=== PATIENT | female | born 1975 | race African-American/Black ===

== ENCOUNTER 2018-11-11 14:21 | Emergency (ER) | payer MEDICAID ==
[~2018-11-11] VITALS: Ht 160 cm; Wt 73.0 kg
[~2018-11-11 14:21] MED LIST: IOHEXOL-300 100 ML BOTTLE ONE
[2018-11-11] MEDS ORDERED: SODIUM CHLORIDE 0.9% 1,000 ML IV ONE (14:50)
[2018-11-11] MEDS ORDERED: MORPHINE SULFATE 4 MG/ML CPJ (NOT FOR IM USE) IV STA (14:50)
[2018-11-11] MEDS ORDERED: ONDANSETRON HCL 4MG/2ML INJ IV STA (14:50)
[2018-11-11 14:57] VITALS: BP 105/50
[2018-11-11] MEDS ORDERED: LIDOCAINE HCL 1% 20ML VIAL (Pyxis) INJ INFIL ONE ×2 (15:30→17:15)
[2018-11-11 15:49] LABS: HEMATOCRIT. 32.8 % (36.0-48.0); MEAN CORPUSCULAR HEMOGLOBIN 21.2 pg (28.0-32.0); MEAN CORPUSCULAR VOLUME 69.3 fL (81.0-99.0); MEAN PLATELET VOLUME 7.2 fl (7.4-10.4); PLATELET 364 x1000/uL (130-400); RED BLOOD CELL COUNT 4.72 mill/uL (4.2-5.4); RED CELL DISTRIBUTION WIDTH 19.2 % (11.6-14.6)
[2018-11-11 15:54] LABS: CHLORIDE 106 mEq/L (98-107)
[2018-11-11 15:55] LABS: PROTHROMBIN TIME 9.7 sec (9.1-11.1)
[2018-11-11 16:22] LABS: PLATELET ESTIMATE NORMAL
[2018-11-11] MEDS ORDERED: LIDOCAINE/EPINEPHR/TETRACAINE 3ML TP ONE (17:00)
[2018-11-11] MEDS ORDERED: LIDOCAINE HCL 2% JELLY 5ML TOP ONE (17:30)
== END 2018-11-11 19:05 | disposition home or self-care (01) ==
LOC: ER 14:32
DX: S61.215A Laceration without foreign body of left ring finger without damage to nail, initial encounter (principal); S01.311A Laceration without foreign body of right ear, initial encounter; S11.91XA Laceration without foreign body of unspecified part of neck, initial encounter; S31.119A Laceration without foreign body of abdominal wall, unspecified quadrant without penetration into peritoneal cavity, initial encounter; X99.1XXA Assault by knife, initial encounter; Y93.89 Activity, other specified; Y92.89 Other specified places as the place of occurrence of the external cause; Y99.8 Other external cause status
CPT/HCPCS: 12004; 12011; 36415; 74177; 80053; 81025; 83690; 85025; 85610; 96374; 96375; 99284; J2270; J2405; J3490; J7030; Q9967; Z7610

== ENCOUNTER 2020-02-10 18:45 | Emergency (ER) | payer MEDICAID ==
[~2020-02-10] VITALS: Ht 160 cm; Wt 73.0 kg
[2020-02-10] MEDS ORDERED: ACETAMINOPHEN 325MG TABLET PO STA (20:01)
[2020-02-10 20:35] LABS: CLARITY URINE CLOUDY (CLEAR); COLOR URINE DARK YELLOW (YELLOW); KETONES URINE TRACE (NEGATIVE); LEUKOCYTE ESTERASE URINE NEGATIVE (NEGATIVE); NITRITE URINE NEGATIVE (NEGATIVE); OCCULT BLOOD URINE NEGATIVE (NEGATIVE); PH URINE 5.5 (4.5-8.0); PROTEIN URINE TRACE (NEGATIVE); SPECIFIC GRAVITY URINE 1.028 (1.005-1.030)
[2020-02-10 20:56] LABS: METHADONE URINE SCREEN NEGATIVE (NEGATIVE); OPIATES URINE SCREEN NEGATIVE (NEGATIVE)
[2020-02-10 20:57] LABS: *BARBITURATES SCREEN URINE NEGATIVE (NEGATIVE); *BENZODIAZEPINES SCREEN URINE NEGATIVE (NEGATIVE); *COCAINE SCREEN URINE NEGATIVE (NEGATIVE); CANNABINOID URINE SCREEN NEGATIVE (NEGATIVE); PHENCYCLIDINE URINE SCREEN NEGATIVE (NEGATIVE)
[2020-02-10 21:02] LABS: *AMPHETAMINES SCREEN URINE PRESUMTIVE POSITIVE (NEGATIVE)
[2020-02-10 21:09] LABS: BASOPHILS % 0.2 % (0.0-2.0); EOSINOPHILS % 2.4 % (0.0-5.0); HEMOGLOBIN. 13.5 g/dL (12.0-16.0); LYMPHOCYTES % 28.5 % (20.0-50.0); MEAN CORPUSCULAR HEMOGLOBIN 26.9 pg (28.0-32.0); MEAN CORPUSCULAR VOLUME 81.4 fL (81.0-99.0); MEAN PLATELET VOLUME 7.1 fl (7.4-10.4); MONOCYTES % 9.5 % (2.0-8.0); NEUTROPHILS % 59.4 % (40.0-76.0); PLATELET 297 x1000/uL (130-400); RED BLOOD CELL COUNT 5.04 mill/uL (4.2-5.4); RED CELL DISTRIBUTION WIDTH 17.3 % (11.6-14.6)
[2020-02-10 21:11] LABS: CHLORIDE 107 mEq/L (98-107)
[2020-02-10 21:15] LABS: ETHANOL BLOOD < 10 mg/dL
[2020-02-10 21:37] VITALS: BP 140/80
== END 2020-02-10 21:38 | disposition home or self-care (01) ==
LOC: ER 18:45
DX: S00.83XA Contusion of other part of head, initial encounter (principal); T16.2XXA Foreign body in left ear, initial encounter; F15.10 Other stimulant abuse, uncomplicated; F16.10 Hallucinogen abuse, uncomplicated; F41.9 Anxiety disorder, unspecified; F31.9 Bipolar disorder, unspecified; E11.9 Type 2 diabetes mellitus without complications; I10 Essential (primary) hypertension; F17.210 Nicotine dependence, cigarettes, uncomplicated; J32.9 Chronic sinusitis, unspecified; Y00.XXXA Assault by blunt object, initial encounter; Y93.89 Activity, other specified; Y92.89 Other specified places as the place of occurrence of the external cause
CPT/HCPCS: 36415; 80048; 80305; 80320; 81003; 81025; 85025; 99284; G0480

== ENCOUNTER 2020-06-19 09:36 | Emergency (ER) | payer MEDICAID ==
[~2020-06-19] VITALS: Ht 162.6 cm; Wt 68.0 kg
[2020-06-19 09:43] VITALS: BP 150/90
== END 2020-06-19 12:09 | disposition left against medical advice (07) ==
LOC: ER 09:36
DX: R51 Headache (principal); Z53.21 Procedure and treatment not carried out due to patient leaving prior to being seen by health care provider

== ENCOUNTER 2021-06-17 12:00 | Emergency (ER) | payer MEDICAID ==
[~2021-06-17] VITALS: Ht 167.6 cm; Wt 100.0 kg
[2021-06-17] MEDS ORDERED: MORPHINE SULFATE 4 MG/ML CPJ (NOT FOR IM USE) IV ONE (12:45)
[2021-06-17] MEDS ORDERED: ONDANSETRON HCL 4MG/2ML INJ IV ONE (12:45)
[2021-06-17 13:25] LABS: BASOPHILS % 1.3 % (0.0-2.0); EOSINOPHILS % 1.8 % (0.0-5.0); HEMATOCRIT. 44.1 % (36.0-48.0); HEMOGLOBIN. 14.9 g/dL (12.0-16.0); LYMPHOCYTES % 21.4 % (20.0-50.0); MEAN CORPUSCULAR HEMOGLOBIN 27.5 pg (28.0-32.0); MEAN CORPUSCULAR VOLUME 81.6 fL (81.0-99.0); MEAN PLATELET VOLUME 6.9 fl (7.4-10.4); MONOCYTES % 10.1 % (2.0-8.0); NEUTROPHILS % 65.4 % (40.0-76.0); PLATELET 362 x1000/uL (130-400); RED BLOOD CELL COUNT 5.41 mill/uL (4.2-5.4); RED CELL DISTRIBUTION WIDTH 14.2 % (11.6-14.6)
[2021-06-17 13:32] LABS: CHLORIDE 105 mEq/L (98-107)
[2021-06-17 14:59] LABS: CLARITY URINE CLEAR (CLEAR); COLOR URINE YELLOW (YELLOW); KETONES URINE TRACE (NEGATIVE); LEUKOCYTE ESTERASE URINE NEGATIVE (NEGATIVE); NITRITE URINE NEGATIVE (NEGATIVE); OCCULT BLOOD URINE TRACE (NEGATIVE); PROTEIN URINE NEGATIVE (NEGATIVE); SPECIFIC GRAVITY URINE 1.018 (1.005-1.030)
[2021-06-17] MEDS ORDERED: ACETAMINOPHEN 325MG TABLET PO ONE (17:30)
[2021-06-17] MEDS ORDERED: ACET-2708 MT (17:44)
[2021-06-17] MEDS ORDERED: TRAM50TA3 MT (17:44)
[2021-06-17 18:03] VITALS: BP 126/67
== END 2021-06-17 18:04 | disposition home or self-care (01) ==
LOC: ER 12:27
DX: S06.9X0A Unspecified intracranial injury without loss of consciousness, initial encounter (principal); R10.9 Unspecified abdominal pain; R42 Dizziness and giddiness; V43.52XA Car driver injured in collision with other type car in traffic accident, initial encounter; Y93.89 Activity, other specified; Y92.410 Unspecified street and highway as the place of occurrence of the external cause
CPT/HCPCS: 36415; 70450; 74177; 80053; 81003; 81025; 83690; 85025; 96374; 96375; 99285; J2270; J2405

== ENCOUNTER 2021-06-18 23:20 | Emergency (ER) | payer MEDICAID ==
[~2021-06-18] VITALS: Ht 162.6 cm; Wt 73.0 kg
[~2021-06-18 23:20] MED LIST changes: +ACET-2708 MT; -IOHEXOL-300 100 ML BOTTLE ONE; +TRAM50TA3 MT
[2021-06-19] MEDS ORDERED: ACETAMINOPHEN 325MG TABLET PO ONE (00:45)
[2021-06-19] MEDS ORDERED: TRAMADOL 50MG TABLET PO ONE (01:30)
[2021-06-19 02:30] VITALS: BP 115/69
== END 2021-06-19 02:30 | disposition home or self-care (01) ==
LOC: ER 23:20
DX: S09.8XXA Other specified injuries of head, initial encounter (principal); R07.89 Other chest pain; Z98.890 Other specified postprocedural states; Y00.XXXA Assault by blunt object, initial encounter; Y93.89 Activity, other specified; Y92.89 Other specified places as the place of occurrence of the external cause
CPT/HCPCS: 71045; 93005; 99283

== ENCOUNTER 2022-01-21 16:28 | Emergency (ER) | payer MEDICAID, OTHER ==
[~2022-01-21] VITALS: Ht 165.1 cm; Wt 66.0 kg
[2022-01-21] MEDS ORDERED: KETOROLAC 30MG/ML VIAL IV STA (16:59)
[2022-01-21] MEDS ORDERED: SODIUM CHLORIDE 0.9% 1,000 ML IV ONE (17:00)
[2022-01-21 18:50] LABS: BASOPHILS % 1.2 % (0.0-2.0); EOSINOPHILS % 3.4 % (0.0-5.0); HEMATOCRIT. 43.1 % (36.0-48.0); HEMOGLOBIN. 14.6 g/dL (12.0-16.0); MEAN CORPUSCULAR HEMOGLOBIN 28.7 pg (28.0-32.0); MEAN PLATELET VOLUME 7.1 fl (7.4-10.4); MONOCYTES % 10.9 % (2.0-8.0); NEUTROPHILS % 60.5 % (40.0-76.0); PLATELET 350 x1000/uL (130-400); RED BLOOD CELL COUNT 5.07 mill/uL (4.2-5.4); RED CELL DISTRIBUTION WIDTH 15.7 % (11.6-14.6)
[2022-01-21 18:58] LABS: CHLORIDE 105 mEq/L (98-107)
[2022-01-21 19:04] LABS: ETHANOL BLOOD < 10 mg/dL
[2022-01-21 19:12] LABS: HCG SCREEN NEGATIVE
[2022-01-21] MEDS ORDERED: KETOROLAC 30MG/ML VIAL IV NR (20:30)
[2022-01-21] MEDS ORDERED: KETOROLAC 15MG/ML VIAL IV NR (20:30)
[2022-01-21] MEDS ORDERED: IBUP-2028 MT (20:47)
[2022-01-21 20:54] VITALS: BP 128/90
[2022-01-21] MEDS ORDERED: IOHEXOL-300 100 ML BOTTLE ONE (20:56)
[2022-01-21] MEDS ORDERED: AZITHROMYCIN 500 MG TABLET PO ONE (21:00)
[2022-01-21] MEDS ORDERED: CEFTRIAXONE 1 G PREMIX 50 ML IV ONE (21:00)
== END 2022-01-21 23:07 | disposition home or self-care (01) ==
LOC: ER 16:28
DX: R07.89 Other chest pain (principal); R10.30 Lower abdominal pain, unspecified; Y08.89XA Assault by other specified means, initial encounter; Y93.89 Activity, other specified; Y92.89 Other specified places as the place of occurrence of the external cause; Y99.8 Other external cause status; Z98.890 Other specified postprocedural states
CPT/HCPCS: 36415; 70450; 71045; 71260; 74177; 80053; 80320; 84484; 84703; 85025; 93005; 96361; 96365; 96375; 99285; J0696; J1885; J7030; Q9967; G0480